=== PATIENT | female | born 1985 | race Caucasian/White ===

== ENCOUNTER 2016-09-15 08:20 | Day surgery (SDC) | payer OTHER ==
--- NOTE | 2016-09-14 14:36 | HISTORY AND PHYSICAL E ---
History and Physical NAME: NOELLE BALDWIN : 1985 AGE: 30Y ADMITTED: 09/15/2016 ROOM: HISTORY OF PRESENT ILLNESS: A 30-year-old female referred to us by [facility] for diarrhea, abdominal cramps. The patient has an urgent surgery a year ago and right hemicolectomy. PAST SURGICAL HISTORY: 1. The patient had some of her small bowel resected. 2. Tubal ligation. MEDICATIONS: 1. Iron. 2. Vitamin D. 3. Prozac. 4. Ibuprofen. 5. Percocet. 6. Multivitamins. 7. Imodium. 8. Vitamin C. FAMILY HISTORY: Father is alive, hypertension. Mom is alive. REVIEW OF SYSTEMS: HEAD, EYES, EARS, NOSE, THROAT: Negative. RESPIRATORY: Negative. CARDIAC: Negative. ENDOCRINE: Negative. GASTROINTESTINAL: Abdominal pain. History of right colon resection. History of small bowel laceration. Anemia. NEUROPSYCHIATRIC: Anxiety. PHYSICAL EXAMINATION: VITAL SIGNS: Weight 250, blood pressure 120/80, temperature is 98. HEAD, EYES, EARS, NOSE, THROAT: Normal. ABDOMEN: Soft. NEUROLOGIC: Negative. CONCLUSION: 1. History of malabsorption. 2. History of abdominal surgery, right hemicolectomy. 3. History of multiple lacerations of the small bowel. PLAN: Colonoscopy. Imodium. Later on consider upper endoscopy. Consider small bowel x-ray for further evaluation of the length and the part of the small bowel resected, small bowel series. DICTATING PHYSICIAN: FLORES MARIN M.D. 1284M 1515 Y#: [id number] ID: [id number] JOB#: [id number] ACCT: [id number] cc:FLORES MARIN M.D. >
[~2016-09-15 08:20] MED LIST: EPINEPHRINE INJ 1 MG/10 ML DISP.SYRIN ONE; FLUMAZENIL INJ 0.5 MG/5 ML VIAL IV ONE; GLUCAGON,HUMAN RECOMB 1 MG INJ ONE; GLYCOPYRROLATE INJ 0.4 MG/2 ML VIAL ONE; LIDOCAINE 2% JELLY 30 ML TUBE ONE; NALOXONE HCL INJ/PF 0.4 MG/1 ML SDV ONE; ONDANSETRON HCL INJ/PF 4 MG/2 ML SDV ONE
[2016-09-15] MEDS: MIDAZOLAM 2 MG/2 ML INJ ONE ×3 (09:25→09:40)
[2016-09-15] MEDS: FENTANYL CITRATE INJ/PF 100 MCG/2 ML AMPUL ONE ×3 (09:27→09:45)
[2016-09-15 10:50] LABS: ABSOLUTE EOSINOPHILS # (AUTO) 0.1 10^3/uL (0.0-0.6); ABSOLUTE LYMPHOCYTES (AUTO) 1.8 10^3/uL (0.5-4.7); ABSOLUTE MONOCYTES (AUTO) 0.5 10^3/uL (0.1-1.4); ABSOLUTE NEUT (AUTO) 5.5 10^3/uL (1.7-8.2); BASOPHILS % (AUTO) 0.4 % (0-2); EOSINOPHILS % (AUTO) 0.9 % (0-6); HEMATOCRIT 37.6 % (36.0-47.0); HEMOGLOBIN 12.5 g/dL (12.0-15.5); HGB HCT DIFFERENCE -0.1; LYMPHOCYTES % (AUTO) 22.4 % (13-45); MEAN CORPUSCULAR HEMOGLOBIN 27.5 pg (27.0-33.4); MEAN CORPUSCULAR HGB CONC 33.3 g/dL (32.0-36.0); MEAN CORPUSCULAR VOLUME 83 fl (80-97); MONOCYTES % (AUTO) 6.5 % (3-13); RED BLOOD COUNT 4.56 10^6/uL (3.72-5.28); RED CELL DISTRIBUTION WIDTH 15.6 % (11.5-14.0); SEGMENTED NEUTROPHILS % (AUTO) 69.8 % (42-78); WHITE BLOOD COUNT 7.8 10^3/uL (4.0-10.5)
[2016-09-15 10:51] VITALS: BP 113/69
[2016-09-15 11:15] LABS: ALANINE AMINOTRANSFERASE 29 U/L (9-52); ALBUMIN 4.1 g/dL (3.5-5.0); ALKALINE PHOSPHATASE 86 U/L (38-126); ANION GAP 9 (5-19); ASPARTATE AMINO TRANSFERASE 21 U/L (14-36); BILIRUBIN,DIRECT 0.4 mg/dL (0.0-0.4); BILIRUBIN,TOTAL 0.7 mg/dL (0.2-1.3); BLOOD UREA NITROGEN 6 mg/dL (7-20); CALCIUM 9.6 mg/dL (8.4-10.2); CARBON DIOXIDE 25 mmol/L (22-30); CHLORIDE 105 mmol/L (98-107); CREATININE RESULT 0.72 mg/dL (0.52-1.25); GLUCOSE 110 mg/dL (75-110); MAGNESIUM 2.1 mg/dL (1.6-2.3); POTASSIUM 4.3 mmol/L (3.6-5.0); SODIUM 139.2 mmol/L (137-145); TOTAL PROTEIN 7.2 g/dL (6.3-8.2)
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
== END 2016-09-15 11:00 | disposition home or self-care (01) ==
LOC: END 08:20
PROVIDERS: ATTEND Specialist
PROC: 3E0H8GC Introduction of Other Therapeutic Substance into Lower GI, Via Natural or Artificial Opening Endoscopic (ICD-10-PCS; 2016-09-15)
PROC: 0DBP8ZX Excision of Rectum, Via Natural or Artificial Opening Endoscopic, Diagnostic (ICD-10-PCS; principal; 2016-09-15 09:00)
PROC: 0DBB8ZX Excision of Ileum, Via Natural or Artificial Opening Endoscopic, Diagnostic (ICD-10-PCS; 2016-09-15 09:00)
PROC: 0DBN8ZX Excision of Sigmoid Colon, Via Natural or Artificial Opening Endoscopic, Diagnostic (ICD-10-PCS; 2016-09-15 09:00)
DX: D12.7 Benign neoplasm of rectosigmoid junction (principal); D64.9 Anemia, unspecified; F41.9 Anxiety disorder, unspecified; Z90.49 Acquired absence of other specified parts of digestive tract; Z79.899 Other long term (current) drug therapy; Z79.1 Long term (current) use of non-steroidal anti-inflammatories (NSAID); Z79.891 Long term (current) use of opiate analgesic
CPT/HCPCS: 45380; 45385; 45381; 36415; 82306; 82607; 82380; 82728; 83735; 85025; 80053; 88305 ×2; J2250; J3010; J2405; J0171; J1610; J2310; J3490

== ENCOUNTER → 2016-09-21 | Outpatient (CLI) | payer OTHER | LOC: OD 13:46 | PROVIDERS: ATTEND Specialist | DX: D50.9 Iron deficiency anemia, unspecified (principal) | CPT/HCPCS: 36415; 83540 ==

== ENCOUNTER → 2016-09-27 | Outpatient (CLI) | payer OTHER ==
--- NOTE | 2016-09-28 16:22 | RADIOLOGY REPORT (SQ) ---
EXAM DESCRIPTION: SMALL BOWEL SERIES COMPLETED DATE/TIME: 09/27/2016 10:37 am REASON FOR STUDY: DIARRHEA, ABDOMINAL PAIN R19.7 DIARRHEA, UNSPECIFIED R19.01 RIGHT UPPER QUADRANT ABDOMINAL SWELLING, MASS AND LUM COMPARISON: No imaging. Colonoscopy report dated 09/15/2016 FLUOROSCOPY TIME: 31 seconds 7 fluoroscopy images saved to PACS. LIMITATIONS: None. PROCEDURE: Initial it communications specialist image of abdomen acquired, followed by administration of oral contrast. Se rial radiographic images acquired. Fluoroscopic images recorded of the terminal ileum and other erin cated areas. All images stored on PACS. FINDINGS: [employer]: Non-obstructive bowel pattern. No abnormal calcifications. Soft tissue planes normal. STOMACH: No significant reflux. Normal distention without abnormality. DUODENUM: Normal mucosal pattern with adequate distention. No displacement or obstruction. JEJUNUM: Normal mucosal pattern. No dilatation, segmentation, strictures or masses. ILEUM: Normal mucosal pattern. No dilatation, segmentation, strictures or masses. TERMINAL ILEUM AND ILEO-CECAL VALVE: Absent. Status post right colectomy. The left upper quadrant anastomosis is patent with no abnormalities seen. TRANSIT TIME: 45 minutes. PROXIMAL COLON: Absent. Status post right colectomy. OTHER: No other significant finding. IMPRESSION: 1. NORMAL SMALL BOWEL EXAM S/P RIGHT COLECTOMY WITH NORMAL LEFT UPPER QUADRANT ANASTOMOS IS. COMMENT: Quality ID [id number]: Final reports for procedures using fluoroscopy that document radiation exp osure indices, or exposure time and number of fluorographic images (if radiation exposure indices are not available) TECHNICAL DOCUMENTATION: JOB ID: [id number] [employer]- All Rights Reserved
== END ==
LOC: RAD 08:51
PROVIDERS: ATTEND Specialist
DX: R19.01 Right upper quadrant abdominal swelling, mass and lump (principal); R19.7 Diarrhea, unspecified
CPT/HCPCS: 74250

== ENCOUNTER 2016-10-06 09:15 | Day surgery (SDC) | payer OTHER ==
[~2016-10-06 09:15] MED LIST changes: -GLUCAGON,HUMAN RECOMB 1 MG INJ ONE; -LIDOCAINE 2% JELLY 30 ML TUBE ONE; -ONDANSETRON HCL INJ/PF 4 MG/2 ML SDV ONE
[2016-10-06] MEDS: ONDANSETRON HCL INJ/PF 4 MG/2 ML SDV ONE ×2 (10:17→10:26)
[2016-10-06] MEDS: MIDAZOLAM 2 MG/2 ML INJ ONE ×3 (10:18→10:24)
[2016-10-06] MEDS: FENTANYL CITRATE INJ/PF 100 MCG/2 ML AMPUL ONE ×2 (10:20→10:28)
--- NOTE | 2016-10-06 10:41 | HISTORY AND PHYSICAL E ---
History and Physical NAME: NOELLE BALDWIN : 1985 AGE: 30Y ADMITTED: 10/06/2016 ROOM: CHIEF COMPLAINT: Iron deficiency anemia. HISTORY OF PRESENT ILLNESS: Patient presented with malabsorption, low iron. She is for upper endoscopy. Small bowel series negative. Patient presented with diarrhea and abdominal pain. She is on iron, Prozac, Percocet. FAMILY HISTORY: Father alive, hypertensive. Mom is alive. REVIEW OF SYSTEMS: HEAD, EYES, EARS, NOSE, THROAT: Negative. CARDIAC: Negative. ENDOCRINE: Negative. GASTROINTESTINAL: Abdominal pain and right colon resection. Anemia. History of laceration of small bowel. NEUROLOGIC/PSYCHIATRIC: Anxiety. PHYSICAL EXAMINATION: VITAL SIGNS: Blood pressure 120/80, pulse 80, respirations 18, temp is 98. HEAD, EYES, EARS, NOSE, THROAT: Normal. ABDOMEN: Soft. NEUROLOGIC EXAM: Negative. CONCLUSION: 1. Abdominal pain. 2. Low iron, iron deficiency anemia. PLAN: Upper scope and duodenal biopsy. Rule out celiac disease. We will do pro time and bleeding time prior to endoscopy. DICTATING PHYSICIAN: FLORES MARIN M.D. 1211M 1511 PHY#: [id number] ID: [id number] JOB#: [id number] ACCT: [id number] cc:[facility], FLORES MARIN M.D. >
--- NOTE | 2016-10-06 10:42 | HISTORY AND PHYSICAL E ---
History and Physical NAME: NOELLE BALDWIN : 1985 AGE: 30Y ADMITTED: 10/06/2016 ROOM: CHIEF COMPLAINT: 1. ANEMIA. 2. DIARRHEA. 3. ABDOMINAL PAIN. MEDICATIONS: 1. Iron. 2. Ibuprofen. FAMILY HISTORY: Father is alive; has high blood pressure. Mom is alive. REVIEWING OF SYSTEMS: GASTROINTESTINAL: Abdominal pain. History of right colon resection. PSYCHIATRIC: Anxiety. PHYSICAL EXAM: VITAL SIGNS: Blood pressure 120/80, pulse 80, temperature is 98. HEAD, EYES, EARS, NOSE, THROAT: Normal. ABDOMEN: Soft. NEUROLOGIC: Exam negative. CONCLUSION: 1. HISTORY OF COLON POLYPS. 2. ANEMIA. 3. HISTORY OF RIGHT COLON RESECTION. PLAN: Upper endoscopy. Will need a bleeding time and ProTime prior. Upper scope scheduled for 10/06/2016. PLAN: Patient for upper scope. DICTATING PHYSICIAN: FLORES AMRIN M.D. 1265M 1615 PHY#: [id number] ID: [id number] JOB#: [id number] ACCT: [id number] cc:FLORES MAIRN M.D. >
[2016-10-06 11:42] VITALS: BP 130/72
[2016-10-06 13:17] LABS: ABSOLUTE EOSINOPHILS # (AUTO) 0.1 10^3/uL (0.0-0.6); ABSOLUTE MONOCYTES (AUTO) 0.5 10^3/uL (0.1-1.4); ABSOLUTE NEUT (AUTO) 6.9 10^3/uL (1.7-8.2); BASOPHILS % (AUTO) 0.5 % (0-2); EOSINOPHILS % (AUTO) 1.4 % (0-6); HEMATOCRIT 37.8 % (36.0-47.0); HEMOGLOBIN 12.3 g/dL (12.0-15.5); HGB HCT DIFFERENCE -0.9; LYMPHOCYTES % (AUTO) 21.2 % (13-45); MEAN CORPUSCULAR HEMOGLOBIN 27.5 pg (27.0-33.4); MEAN CORPUSCULAR HGB CONC 32.6 g/dL (32.0-36.0); MEAN CORPUSCULAR VOLUME 84 fl (80-97); MONOCYTES % (AUTO) 5.6 % (3-13); RED BLOOD COUNT 4.47 10^6/uL (3.72-5.28); RED CELL DISTRIBUTION WIDTH 14.9 % (11.5-14.0); SEGMENTED NEUTROPHILS % (AUTO) 71.3 % (42-78); WHITE BLOOD COUNT 9.7 10^3/uL (4.0-10.5)
[2016-10-06 13:30] LABS: IRON 12.5 ug/dL (37-170)
[2016-10-06 14:05] LABS: FERRITIN 25.4 ng/mL (6.2-137.0)
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
== END 2016-10-06 12:15 | disposition home or self-care (01) ==
LOC: END 09:15
PROVIDERS: ATTEND Specialist
PROC: 0DB98ZX Excision of Duodenum, Via Natural or Artificial Opening Endoscopic, Diagnostic (ICD-10-PCS; 2016-10-06)
PROC: 0DB68ZX Excision of Stomach, Via Natural or Artificial Opening Endoscopic, Diagnostic (ICD-10-PCS; principal; 2016-10-06 10:00)
DX: K29.50 Unspecified chronic gastritis without bleeding (principal); K29.80 Duodenitis without bleeding; K21.0 Gastro-esophageal reflux disease with esophagitis; R06.6 Hiccough; D50.9 Iron deficiency anemia, unspecified; F41.9 Anxiety disorder, unspecified; Z79.899 Other long term (current) drug therapy; Z79.1 Long term (current) use of non-steroidal anti-inflammatories (NSAID); Z90.49 Acquired absence of other specified parts of digestive tract; Z86.010 Personal history of colon polyps
CPT/HCPCS: 43239; 36415; 82728; 83540; 85025; 88342 ×2; 88305 ×2; J2250; J3010; J2405; J0171; J2310; J3490

== ENCOUNTER → 2017-01-05 | Outpatient (CLI) | payer OTHER ==
--- NOTE | 2017-01-08 19:29 | EKG REPORT ---
SEVERITY:- BORDERLINE ECG - SINUS RHYTHM BORDERLINE T ABNORMALITIES, ANTERIOR LEADS : Confirmed by: Sb Jauregui MD 08-Jan-2017 19:27:35
== END ==
LOC: OD 15:30
PROVIDERS: ATTEND Podiatrist
DX: Z01.810 Encounter for preprocedural cardiovascular examination (principal); M25.571 Pain in right ankle and joints of right foot; M24.871 Other specific joint derangements of right ankle, not elsewhere classified
CPT/HCPCS: 93005; 93010